=== PATIENT | male | born 1945 | race Caucasian/White ===

== ENCOUNTER 2017-11-22 15:50 | Observation (INO) | payer OTHER ==
--- NOTE | 2017-11-22 16:36 | ED PDOC ---
HPI: Chest Pain Time Seen by Provider: 11/22/17 16:19 Chief Complaint (Nursing): Chest Pain Chief Complaint (Provider): SOB History Per: Patient History/Exam Limitations: no limitations Additional Complaint(s): Pt reports SOB with exertion X 6 months, intermittent. Denies CP, cough, nausea , orthopnea, leg swelling. Pt travelled from [place] 2 weeks ago. Denies calf herman, palpitations. Past Medical History Vital Signs: Last Vital Signs Temp 98.0 F 11/23/17 14:55 Pulse 71 11/23/17 14:55 Resp 18 11/23/17 12:26 BP 152/70 H 11/23/17 14:55 Pulse Ox 99 11/23/17 12:26 - Medical History PMH: Diabetes, HTN, Hypercholesterolemia - Surgical History Surgical History: Hernia Repair - Family History Family History: States: Unknown Family Hx - Social History Current smoker - smoking cessation education provided: No Alcohol: None - Home Medications Home Medications: Ambulatory Orders Medication Instructions Recorded Aspirin [Ecotrin] 81 mg PO HS 11/22/17 Clopidogrel [Plavix] 75 mg PO DAILY 11/22/17 Diamicron 30 mg PO DAILY 11/22/17 Finasteride [Proscar] 5 mg PO HS 11/22/17 Lotrel 1 cap PO DAILY 11/22/17 Rosuvastatin Calcium [Crestor] 5 mg PO QPM 11/22/17 Tamsulosin [Flomax] 0.4 mg PO DAILY 11/22/17 Torsemide [Demadex] 20 mg PO DAILY 11/22/17 Triamterene 37.5 mg PO DAILY 11/22/17 Zolpidem [Ambien] 5 mg PO HS PRN tab 11/23/17 - Allergies Allergies/Adverse Reactions: Allergies Allergy/AdvReac Type Severity Reaction Status Date / Time No Known Allergies Allergy Verified 11/22/17 16:09 SRAVAN Risk Score for UA/NSTEMI - SRAVAN Risk Score Age > 64: YES 3 or more CAD Risk Factors: YES Known CAD (Stenosis greater than 50%): NO Aspirin use in past 7 days: NO Severe Angina: YES EKG ST changes greater than 0.5mm: NO Positive Cardiac Marker: NO SRAVAN Score: 3 Risk %: 13% Wells Criteria for PE - Wells Criteria for Pulmonary Embolism Clinical Signs and Symptoms of DVT: No P.E is #1 Diagnosis, or Equally Likely: No Heart Rate >100: No Immobilization at least 3 days;Surgery previous 4 weeks: Yes Previous, objectively diagnosed PE or DVT: No Hemoptysis: No Malignancy w/treatment within 6 months, or palliative: No Total Score: 1.5 Review of Systems Constitutional: Negative for: Fever, Chills Cardiovascular: Negative for: Chest Pain, Palpitations Respiratory: Positive for: Shortness of Breath. Negative for: Cough Gastrointestinal: Negative for: Nausea, Vomiting, Abdominal Pain, Diarrhea Genitourinary Male: Negative for: Dysuria, Hematuria Musculoskeletal: Negative for: Leg Pain Skin: Negative for: Rash, Lesions Neurological: Negative for: Headache, Dizziness Physical Exam - Reviewed Nursing Documentation Reviewed: Yes Vital Signs Reviewed: Yes - Physical Exam Appears: Positive for: Well, No Acute Distress (Speaking full sentences) Skin: Positive for: Normal Color, Warm, Dry Eye Exam: Positive for: Normal appearance, EOMI, PERRL Cardiovascular/Chest: Positive for: Regular Rate, Rhythm, Murmur Respiratory: Positive for: Normal Breath Sounds. Negative for: Rales, Rhonchi, Wheezing, Respiratory Distress Gastrointestinal/Abdominal: Positive for: Normal Exam, Bowel Sounds, Soft. Negative for: Tenderness Back: Positive for: Normal Inspection Extremity: Positive for: Normal ROM. Negative for: Tenderness, Pedal Edema, Calf Tenderness, Swelling Neurologic/Psych: Positive for: Alert, Oriented - Laboratory Results Result Diagrams: 11/22/17 16:33 11/22/17 16:33 - ECG Interpretation Of ECG: NSR @ 72, IRBBB, nonspecific T abnormality. O2 Sat by Pulse Oximetry: 98 Pulse Ox Interpretation: Normal Medical Decision Making Medical Decision Makin yo male with CARRERO. - labs - EKG - CXR Accession No. : [id number] Patient Name / ID : KATHRINE DRAPER R / [id number] Exam Date : 11/22/2017 16:27:18 ( Approved ) Study Comment : Sex / Age : M / 72Y Creator : Donnell Nova MD Dictator : Donnell Nova MD Java User Interface Developer : Parts Representative : Donnell Nova MD Approver2 : Report Date : 11/22/2017 17:05:55 My Comment : HISTORY: CP COMPARISON: No prior. FINDINGS: LUNGS: No active pulmonary disease. PLEURA: No significant pleural effusion identified, no pneumothorax apparent. CARDIOVASCULAR: Atherosclerotic aortic calcifications. Cardiomediastinal silhouette at the upper limits of normal. OSSEOUS STRUCTURES: Degenerative changes. VISUALIZED UPPER ABDOMEN: Normal. OTHER FINDINGS: None. IMPRESSION: No active disease. Dr. Motta in ED with patient. Disposition - Clinical Impression Clinical Impression: Unstable angina - Patient ED Disposition Is Patient to be Admitted: Yes - Disposition Disposition Time: 16:42 Condition: STABLE - Pt Status Changed To: Hospital Disposition Of: Inpatient - Admit Certification Admit to Inpatient:: After my assessment, the patient will require hospitalization for at least two midnights. This is because of the severity of symptoms shown, intensity of services needed, and/or the medical risk in this patient being treated as an outpatient. - POA Present On Arrival: None
[2017-11-22 16:39] LABS: BASO % 0.4 % (0.0-2.0); EOS # 0.1 K/uL (0.0-0.7); EOS % 1.9 % (0.0-4.0); HEMOGLOBIN 13.5 g/dL (12.0-18.0); LYMPH # 1.5 K/uL (1.0-4.3); LYMPH % 24.3 % (20.0-40.0); MEAN CELL VOLUME 82.5 fl (80.0-94.0); MEAN CORPUSCULAR HEMOGLOBIN 28.1 pg (27.0-31.0); MEAN CORPUSCULAR HGB CONC 34.1 g/dL (33.0-37.0); MEAN PLATELET VOLUME 8.8 fl (7.2-11.7); MONO # 0.4 K/uL (0.0-0.8); MONO % 5.7 % (0.0-10.0); NEUT # 4.2 K/uL (1.8-7.0); NEUT % 67.7 % (50.0-75.0); RBC 4.8 Mil/uL (4.40-5.90); RED CELL DISTRIBUTION WIDTH 14.3 % (11.5-14.5); WHITE BLOOD COUNT 6.2 K/uL (4.8-10.8)
[2017-11-22 16:51] LABS: BLOOD UREA NITROGEN 30 mg/dl (9-20); CALCIUM 9.6 mg/dL (8.4-10.2); GFR AFRICAN-AMERICAN > 60; GFR NON-AFRICAN AMERICAN > 60
[2017-11-22 16:52] LABS: ALB/GLOB RATIO 1.2 (1.0-2.1); ALT/SGPT 24 U/L (21-72); AST/SGOT 29 U/L (17-59)
--- NOTE | 2017-11-22 17:07 | RAD ---
HISTORY: CP COMPARISON: No prior. FINDINGS: LUNGS: No active pulmonary disease. PLEURA: No significant pleural effusion identified, no pneumothorax apparent. CARDIOVASCULAR: Atherosclerotic aortic calcifications. Cardiomediastinal silhouette at the upper limits of normal. OSSEOUS STRUCTURES: Degenerative changes. VISUALIZED UPPER ABDOMEN: Normal. OTHER FINDINGS: None. IMPRESSION: No active disease.
[2017-11-22 17:08] LABS: PROTHROMBIN TIME 11.1 Seconds (9.8-13.1)
[2017-11-22 17:09] LABS: PARTIAL THROMBOPLASTIN TIME 32.5 Seconds (25.6-37.1)
[2017-11-22 20:58] VITALS: RESP 18
[2017-11-23] MEDS ORDERED: Sodium Chloride 0.45% 1,000 ML IV SCH (06:00)
[2017-11-23] MEDS ORDERED: Insulin Lispro (humaLOG) 100 Units/ml Inj SC SCH ×2 (13:03→16:30)
[2017-11-23 15:05] VITALS: BP 152/70; PULSE 71; TEMP 98
--- NOTE | 2017-11-23 18:38 | CP.PCM.CON ---
History of Present Illness - History of Present Illness History of Present Illness: Consultation for evaluation of CARRERO HPI: Review of Systems - Review of Systems Systems not reviewed;Unavailable: Acuity of Condition - Constitutional Constitutional: As Per HPI - EENT Eyes: As Per HPI Ears: As Per HPI Nose/Mouth/Throat: As Per HPI - Cardiovascular Cardiovascular: As Per HPI - Respiratory Respiratory: As Per HPI - Gastrointestinal Gastrointestinal: As Per HPI - Genitourinary Genitourinary: As Per HPI - Reproductive: Male Reproductive:Male: As Per HPI - Musculoskeletal Musculoskeletal: As Per HPI - Integumentary Integumentary: As Per HPI - Neurological Neurological: As Per HPI - Psychiatric Psychiatric: As Per HPI - Endocrine Endocrine: As Per HPI - Hematologic/Lymphatic Hematologic: As Per HPI Past Patient History - Past Social History Smoking Status: Never Smoked - CARDIAC Hx Hypercholesterolemia: Yes Hx Hypertension: Yes - PULMONARY Hx Respiratory Disorders: No - NEUROLOGICAL Hx Neurological Disorder: No - HEENT Hx HEENT Problems: No - RENAL Hx Chronic Kidney Disease: No - ENDOCRINE/METABOLIC Hx Endocrine Disorders: Yes - HEMATOLOGICAL/ONCOLOGICAL Hx Blood Disorders: No - INTEGUMENTARY Hx Dermatological Problems: No - MUSCULOSKELETAL/RHEUMATOLOGICAL Hx Falls: No - GENITOURINARY/GYNECOLOGICAL Hx Genitourinary Disorders: Yes - PSYCHIATRIC Hx Substance Use: No - SURGICAL HISTORY Hx Surgeries: Yes Hx Herniorrhaphy: Yes (inguinal hernia repair) - ANESTHESIA Hx Anesthesia: Yes Meds Home Medications: Home Medication List Medication Instructions Recorded Confirmed Type Zolpidem [Ambien] 5 mg PO HS PRN tab 11/23/17 Rx Allergies/Adverse Reactions: Allergies Allergy/AdvReac Type Severity Reaction Status Date / Time No Known Allergies Allergy Verified 11/22/17 16:09 Physical Exam - Constitutional Appears: Well - Head Exam Head Exam: ATRAUMATIC, NORMAL INSPECTION, NORMOCEPHALIC - Eye Exam Eye Exam: EOMI, Normal appearance, PERRL Pupil Exam: NORMAL ACCOMODATION, PERRL - ENT Exam ENT Exam: Mucous Membranes Moist, Normal Exam - Neck Exam Neck exam: Positive for: Normal Inspection - Respiratory Exam Respiratory Exam: Clear to Auscultation Bilateral, NORMAL BREATHING PATTERN - Cardiovascular Exam Cardiovascular Exam: REGULAR RHYTHM, +S1, +S2, Systolic Murmur - GI/Abdominal Exam GI & Abdominal Exam: Normal Bowel Sounds, Soft. absent: Tenderness - Extremities Exam Extremities exam: Positive for: normal inspection - Back Exam Back exam: NORMAL INSPECTION - Neurological Exam Neurological exam: Alert, CN II-XII Intact, Normal Gait, Oriented x3, Reflexes Normal - Psychiatric Exam Psychiatric exam: Normal Affect, Normal Mood - Skin Skin Exam: Dry, Intact, Normal Color, Warm Results - Vital Signs Recent Vital Signs: Last Vital Signs Temp 98.0 F 11/23/17 14:55 Pulse 71 11/23/17 14:55 Resp 18 11/23/17 12:26 BP 152/70 H 11/23/17 14:55 Pulse Ox 99 11/23/17 12:26 - Labs Result Diagrams: 11/22/17 16:33 11/22/17 16:33 Labs: Laboratory Results - last 24 hr 11/22/17 11/23/17 21:41 05:50 POC Glucose (mg/dL) 171 H 164 H Assessment & Plan (1) CARRERO (dyspnea on exertion) Status: Acute (2) Chest pain Status: Acute (3) HTN (hypertension) Status: Acute
--- NOTE | 2017-11-24 01:07 | HP ---
HISTORY OF PRESENT ILLNESS: The patient is a 72-year-old [place] male with history of multiple medical problems including hypertension, hypercholesterolemia, and type 2 diabetes mellitus, presented with symptoms of progressive shortness of breath over the last few months prior to admission. The patient had an outpatient workup done including CT angiogram that showed increased calcium scoring of the right coronary artery. The patient was admitted to the emergency room for progressive shortness of breath and to rule out any underlying acute coronary syndrome. Other review of systems is negative. ALLERGIES: NO KNOWN ALLERGY. MEDICATIONS: Medications were reviewed as per MAR. PAST MEDICAL HISTORY: Hypertension, hypercholesterolemia, type 2 diabetes mellitus. SOCIAL HISTORY: No history of smoking, EtOH, or substance abuse. FAMILY HISTORY: Noncontributory. PHYSICAL EXAMINATION: GENERAL: The patient is in bed comfortable, not in any cardiopulmonary distress. VITAL SIGNS: Blood pressure of 145/87, temperature 98, respiratory rate 18, and pulse 66. HEENT: Pupils equal and reactive to light. Normal-appearing mucosa of the conjunctivae, oropharynx, and nasal membrane mucosa. NECK: Supple. No JVD. No carotid bruit. No lymph node. No thyromegaly. CHEST AND LUNGS: Bilateral symmetrical expansion. Good air exchange. No rales or rhonchi. CARDIOVASCULAR SYSTEM: PMI not localized. S1, S2. No additional sounds. ABDOMEN: Normoactive bowel sounds. No tenderness. No organomegaly. No masses. EXTREMITIES: No cyanosis, no clubbing, no edema. STONER HAND: Alert, awake, and oriented x3. No neurological deficit could be appreciated. ASSESSMENT: A 72-year-old with, 1. Progressive shortness of breath and history of increased calcium scoring in the right coronary artery more than 2000. Rule out unstable angina equivalent symptoms. 2. Type 2 diabetes mellitus. 3. Hypertension. PLAN: We will claim cardiology consult and follow recommendations. We will adjust the patient's medications and follow recommendations of cardiology. Francesco Motta MD
[2017-11-24] MEDS ORDERED: TRIAMTERENE 37.5 MG PO SCH (09:00)
[2017-11-24] MEDS ORDERED: DIAMICRON PO SCH (09:00)
[2017-11-24] MEDS ORDERED: LOTREL PO SCH (09:00)
--- NOTE | 2017-11-26 11:05 | CARD ---
APPROVED REPORT EXAM: Two-dimensional and M-mode echocardiogram with Doppler and color Doppler. Other Information Quality : GoodRhythm : NSR INDICATION Cardiac Disease: CAD 2D DIMENSIONS IVSd1.79 (0.7-1.1cm)LVDd3.37 (3.9-5.9cm) LVOT Diameter2.51 (1.8-2.4cm)PWd0.89 (0.7-1.1cm) IVSs1.75 (0.8-1.2cm)LVDs2.50 (2.5-4.0cm) FS (%) 25.8 %PWs1.20 (0.8-1.2cm) M-Mode DIMENSIONS Left Atrium (MM)4.72 (2.5-4.0cm)IVSd1.16 (0.7-1.1cm) Aortic Root3.47 (2.2-3.7cm)LVDd4.97 (4.0-5.6cm) Aortic Cusp Exc.1.66 (1.5-2.0cm)PWd1.13 (0.7-1.1cm) IVSs1.91 cmFS (%) 50 % LVDs2.50 (2.0-3.8cm)PWs1.88 cm Aortic Valve AoV Peak Yraujwsp144.7cm/sAoV VTI36.5cmAO Peak GR.11mmHg LVOT Peak Bczxgezh359.6cm/sLVOT VTI22.21cmAO Mean GR.7mmHg CADY (VMAX)1.76us7EYB (VTI)1.62cm2 Mitral Valve MV E Drnnlwyi69.4cm/sMV DECEL [id number] A Tztusjgt12.6cm/s MV XTO67saF/A ratio1.2MVA (PHT)3.55cm2 TDI Lateral E' Peak V10.67cm/sMedial E' Peak V6.36cm/sE/Lateral E'7.8 E/Medial E'13.1 Pulmonary Valve PV Peak Ekifwuqa86.0cm/s Tricuspid Valve TR Peak Jnuzfojq523za/sRAP REFOAHNP30jwKsYU Peak Gr.23mmHg FLUF72egFe LEFT VENTRICLE The left ventricle is normal size. There is mild to moderate concentric left ventricular hypertrophy. The left ventricular function is normal. The left ventricular ejection fraction is within the normal range. The Ejection Fraction is 60-65%. There is normal LV segmental wall motion. Transmitral Doppler flow pattern is Grade II-pseudonormal filling dynamics. RIGHT VENTRICLE The right ventricle is normal size. The right ventricular systolic function is normal. ATRIA The left atrium is borderline dilated. The right atrium is borderline dilated. The interatrial septum is intact with no evidence for an atrial septal defect. AORTIC VALVE The aortic valve is thickened but opens well. There is mild to moderate aortic regurgitation. There is no aortic valvular stenosis. MITRAL VALVE The mitral valve is thickened but opens well. There is no mitral valve stenosis. Mitral regurgitation is trace to mild. TRICUSPID VALVE The tricuspid valve is normal in structure. There is trace to mild tricuspid regurgitation. PULMONIC VALVE The pulmonic valve is not well visualized. There is mild to moderate pulmonic valvular regurgitation. GREAT VESSELS The aortic root is normal in size. The IVC is normal in size and collapses >50% with inspiration. PERICARDIAL EFFUSION The pericardium appears normal. <Conclusion> The left ventricular function is normal. The left ventricular ejection fraction is within the normal range. The Ejection Fraction is 60-65%. Transmitral Doppler flow pattern is Grade II-pseudonormal filling dynamics. There is mild to moderate aortic regurgitation. Mitral regurgitation is trace to mild.
--- NOTE | 2017-11-26 11:23 | CARD ---
APPROVED REPORT Protocol: ERIN Test Type: Stress Nuclear Medications: Tamsulosin 0.4mg, Crestor 5mg, Triamterene 37.5mg Plavix 75mg, Demadex, Diamicron 30mg, Aspirin 81mg, Proscar 5mg Medical History: HTN, DM, Dyspnea, Hernia, Target HR: 147 bpm Resting ECG: normal Resting Heart Rate: 68 bpm Resting Blood Pressure: 120/80mmHg submaximum (85%): 125 bpm TEST SUMMARY [id number]/80.0. [id number]/80.0. PRETESTHYPERV.00:[id number]/80.0. PRETESTWARM-UP44:[id number]/75.0. EXERCISESTAGE 103:[id number]/80.0. EXERCISESTAGE 203:[id number]/80.0. EXERCISESTAGE 301:[id number]/80.0. [id number]:[id number]/80.0. POST EXERCISE Reason for Termination: Fatigue Target HR: No Max HR: 100 bpm 73% of Maximum Predicted HR: 147 bpm Exercise duration: 07:33 min:sec, 3 Stage Exercise capacity: 9.3METs Max Blood Pressure: 182/80mmHg Blood Pressure response to exercise: normal resting BP - appropriate response Heart Rate response to exercise: appropriate Chest Pain: No, none Angina index: 0 Arrhythmia: No, none ST Change: No, none Deviation: 0 mm EXAM: Myocardial Perfusion REST/STRESS Image QualityGood Imaging Protocol The imaging protocol used to acquire images was Rest Tc-99m/stress Tc-99m 1 day Rest Spect myocardial perfusion imaging was performed in supine position 30 minutes following the injection of 10 mCi of Tc-99 Myoview. Time of rest injection: 8:03 Time of rest imagin:01 At peak stress, the patient was injected intravenously with 30mCi of Tc-99 tetrofosmin after an infusion time of minutes and seconds. Time of stress injection: 10:51 Time of stress imagin:10 Gated Stress Spect was performed 80 minutes after intravenous Tc-99 Myoview injection. The images were gated to evaluate regional wall motion and calculate ventricular ejection fraction. NUCLEAR IMAGE INTERPRETATION Study quality was fair. Left Ventricular size was Normal at Rest and Stress. Lung uptake was Normal. Left Ventricular ejection fraction is 72%. The rest and stress images show normal perfusion, normal contraction and thickening. LV Perfusion 1 The rest and stress images show normal perfusion. CONCLUSION 1. - Normal myocardial perfusion study with no evidence of ischemia 2. - Normal LVEF Recommendation - Aggressive medical management and risk factor modification
[2017-11-26 11:25] VITALS: O2SAT 98
--- NOTE | 2017-11-26 21:36 | CARD ---
APPROVED REPORT EKG Measurement Heart [id number] CT 160P45 [id number] <Conclusion> Normal sinus rhythm Incomplete right bundle branch block Nonspecific T wave abnormality Abnormal ECG
== END 2017-11-23 15:45 | disposition home or self-care (01) ==
LOC: H.ER 15:50 → EDBD 15:50 → H.ERHOLD 16:42 → INTOOBSV 16:42 → H.TEL 17:37
PROVIDERS: ADMIT Internal Medicine; ATTEND Internal Medicine
DX: R07.9 Chest pain, unspecified (principal); I10 Essential (primary) hypertension; E78.00 Pure hypercholesterolemia, unspecified; E11.9 Type 2 diabetes mellitus without complications; Z79.82 Long term (current) use of aspirin; Z79.02 Long term (current) use of antithrombotics/antiplatelets
CPT/HCPCS: 71045; 78452; 80053; 82948; 83880; 84484; 85025; 85378; 85610; 85730; 93005; 93017; 93306; 99285; A9502; G0378; J7030